=== PATIENT | female | born 1985 | race Caucasian/White ===

== ENCOUNTER 2017-01-27 22:58 | Outpatient (CLI) | payer MEDICAID ==
[~2017-01-27] VITALS: Ht 153.7 cm; Wt 74.8 kg
[2017-01-27 23:37] VITALS: BP 108/65; PULSE 102; RESP 18
[2017-01-27] MEDS ORDERED: FOLI0.8C PO (23:41)
[2017-01-27] MEDS ORDERED: PREN1COM PO (23:41)
[2017-01-27] MEDS ORDERED: FERR134T PO (23:41)
[2017-01-28] MEDS ORDERED: TERBUTALINE 1 MG/ML INJ SC ONE (00:30)
--- NOTE | 2017-01-28 01:51 | RADRPT ---
PROCEDURE: Biophysical profile. CLINICAL INDICATION: Pelvic pain. TECHNIQUE: Multiple sonographic images of the pelvis were obtained with transabdominal technique. COMPARISON: No prior studies are available for comparison. FINDINGS: There is a single living intrauterine gestation with the fetus in a vertex position. The placenta i s fundal in location, grade II. heart tones of 139 beats per minute are identified. There is normal amniotic fluid volume with an ADAM of 10.7 cm. breathing movements = 2 Gross body movements = 2 tone = 2 Qualitative AFV = 2 IMPRESSION: Biophysical profile 8 out of 8. .Mc Carroll MD, MD Date Time Electronically viewed and signed by .Mc Carroll MD, MD on 01/28/2017 01:51 .T/
--- NOTE | 2017-01-28 01:54 | RADRPT ---
PROCEDURE: Obstetrical ultrasound, limited. CLINICAL INDICATION: Pelvic pain. TECHNIQUE: Multiple sonographic images of the pelvis were obtained using transabdominal technique . Images were obtained with ni scale and color Doppler. The images were reviewed on a PACS works tation. COMPARISON: No prior studies are available for comparison. FINDINGS: There is a single living intrauterine gestation with the fetus in a vertex presentation. heart tones of 154 beats per minute are identified. The placenta is fundal in location, grade II. There i s no evidence of placenta previa or abruption. Measurements were made in order to determine age. The results are as follows: BPD =8.20 cm HC =29.61 cm AC =33.60 cm FL =6.73 cm. Estimated gestational age of approximately 34 weeks and 3 days. The estimated date of delivery is 03/08/2017. The EFW = 2753 +/- 413 grams. Estimated weight percentage equals 36.9%. IMPRESSION: Single viable intrauterine gestation of approximately 34 weeks and 3 days, with an ultrasound REDDY of 03/08/2017. .Mc Carroll MD, MD Date Time Electronically viewed and signed by .Mc Carroll MD, MD on 01/28/2017 01:53 .T/
--- NOTE | 2017-01-28 02:35 | TRIAGE ---
OB Triage Datetime Report Generated by CPN: 01/28/2017 02:34 Datetime: 01/28/2017 01:35 Stage of : OB Triage Monitor Mode: External Quality: Mild Pattern: Normal: <= 5 Contractions in 10 Minutes Resting Tone [employer]: Relaxed Heart Rate FHR Baseline Rate: 135 Monitor Mode: External US FHR Baseline Changes: No Baseline Change Variability: Moderate 6-25 bpm Accelerations: 15X15 Decelerations: None Category: Category I Pain Assessment Pain Scale: 5 Pain Presence: Intermittent Pain Type: Cramping Pain Location: Back Datetime: 01/28/2017 01:12 Monitor Mode: External Monitor Mode: External US Datetime: 01/28/2017 01:05 Monitor Mode: External Monitor Mode: External US Datetime: 01/28/2017 00:55 Stage of : OB Triage Datetime: 01/28/2017 00:40 Stage of : OB Triage Labor Evaluation Frequency: IRREGULAR Monitor Mode: External Duration (sec)2399: 30-40 Pattern: Normal: <= 5 Contractions in 10 Minutes Heart Rate FHR Baseline Rate: 135 Monitor Mode: External US Variability: Moderate 6-25 bpm Accelerations: 15X15 Decelerations: None Category: Category I Datetime: 01/28/2017 00:10 Stage of : OB Triage Datetime: 01/27/2017 23:52 Monitor Mode: External Quality: Mild Resting Tone [employer]: Relaxed Contraction Comments: difficult to monitor ucs Heart Rate FHR Baseline Rate: 135 Monitor Mode: External US FHR Baseline Changes: No Baseline Change Variability: Moderate 6-25 bpm Accelerations: 15X15 Decelerations: None Category: Category I Vaginal Exam Dilatation (cms): 0.0 Effacement (%): 0 Station: -4 Exam By: Yany Tao Membrane Status: Intact Vaginal Bleeding: None Cervix, Consistency: Moderate Cervix, Position: Posterior Presentation 'A': Unable to Assess Datetime: 01/27/2017 23:33 Time of Arrival: 01/27/2017 22:55 EGA: 36.1 Arrived By: Wheelchair Arrived From: Home Chief Complaint: w/ hx 3 previous c/s c/o ucs Movement: Absent Contractions: Regular Time Contractions Began: 01/27/2017 20:30 Contractions: q5 Rupture of Membranes: Denies Vaginal Bleeding: None Vaginal Discharge: Denies Recent Sexual Intercouse: Denies Abdominal Trauma: Not Applicable Patient Complaints: Contractions Time Provider Notified: 01/27/2017 23:30 Provider Notified: Dr Arreguin Initial Plan: EFM,SVE,terb,EFW,BPP Datetime: 01/27/2017 23:32 Stage of : OB Triage Datetime: 01/27/2017 23:29 Stage of : OB Triage Monitor Mode: External Quality: Mild Pattern: Normal: <= 5 Contractions in 10 Minutes Resting Tone [employer]: Relaxed Heart Rate FHR Baseline Rate: 135 Monitor Mode: External US Variability: Moderate 6-25 bpm Accelerations: 15X15 Pain Assessment Pain Scale: 7 Pain Presence: Intermittent Pain Type: Contraction Pain Location: Abdomen Datetime: 01/27/2017 23:07 Stage of : OB Triage Maternal Assessment Level of Consciousness: Fully Conscious Headache: Denies Blurred Vision: No Respiratory Effort: Unlabored Nausea/Vomiting: Denies RUQ Epigastric Pain: Denies Facial Edema: None Monitor Mode: External Resting Tone [employer]: Relaxed Heart Rate FHR Baseline Rate: 140 Monitor Mode: External US Pain Assessment Pain Scale: 7 Pain Presence: Intermittent Pain Type: Contraction Pain Location: Abdomen
--- NOTE | 2017-01-28 02:57 | PN ---
Triage Information Date/Time 01/28/1711/06/249 Reason for visit: Uterine contractions Weeks of Gestation IUP 36w 3d /Para Diabetes: none Hypertention: none Objective Vital Signs Date Time Temp Pulse Resp B/P Pulse Ox O2 Delivery O2 Flow Rate FiO2 01/27/17 23:37 98.1 102 18 108/65 Room Air Heart Rate: 130's Contractions: >10 Minutes Apart Exam closed/long /high Results/Medications Results 24 hrs Laboratory Tests Test 01/27/17 23:00 Urine Color STRAW Urine Clarity CLEAR Urine pH 7.0 Urine Specific [place] 1.003 Urine Ketones NEGATIVE Urine Nitrite NEGATIVE Urine Bilirubin NEGATIVE Urine Urobilinogen NEGATIVE Urine Leukocyte Esterase NEGATIVE Urine Hemoglobin NEGATIVE Urine Glucose NEGATIVE Urine Total Protein NEGATIVE Medications terbx1 Imaging Results BPP10/28 ADAM 10.7 EFW 2753+/- 413 Disposition: Discharge Assessment/Plan IUP 36w3d with previous c/sX3 R/O PTL resolved Plan d/s home with routine labor instructions RTH prANTONIO Larios MD Jan 28, 2017 02:57
== END 2017-01-28 02:32 | disposition home or self-care (01) ==
LOC: OBT 22:58 → L-D 23:00 → OBT 01-28 02:32
PROVIDERS: ATTEND Obstetrics & Gynecology
DX: O62.9 Abnormality of forces of labor, unspecified (principal); Z3A.36 36 weeks gestation of pregnancy
CPT/HCPCS: 36415; 76815; 76818; 81003; J3105; Z7500; G0463

== ENCOUNTER 2017-01-29 16:17 | Outpatient (CLI) | payer MEDICAID ==
[~2017-01-29] VITALS: Ht 162.6 cm; Wt 88.8 kg
[~2017-01-29 16:17] MED LIST: FERR134T PO; FOLI0.8C PO; PREN1COM PO
[2017-01-29 16:20] VITALS: Ht 162.6 cm; Wt 88.8 kg
--- NOTE | 2017-01-29 17:00 | RADRPT ---
PROCEDURE: Obstetrical ultrasound for biophysical profile CLINICAL INDICATION: Biophysical profile. . TECHNIQUE: Obstetrical ultrasound of the uterus for biophysical profile. Transabdominal views are obtained. COMPARISON: 01/28/2017 FINDINGS: Single intrauterine gestation. Presentation: Cephalic. Placenta: Fundal No evidence of placental abruption. No evidence of placenta previa. breathing movement = 2/2 tone = 2/2 motion = 2/2 ADAM = 2/2 ADAM = 13.8 cm heart rate: 127 beats per minute IMPRESSION: Single intrauterine gestation. Biophysical profile 10/28 RPTAT: AADD .Uri Meza MD, MD Date Time Electronically viewed and signed by .Uri Meza MD, on 01/29/2017 17:00 .B/
--- NOTE | 2017-01-29 17:00 | RADRPT ---
PROCEDURE: Obstetrical ultrasound for biophysical profile CLINICAL INDICATION: Biophysical profile. . TECHNIQUE: Obstetrical ultrasound of the uterus for biophysical profile. Transabdominal views are obtained. COMPARISON: 01/28/2017 FINDINGS: Single intrauterine gestation. Presentation: Cephalic. Placenta: Fundal No evidence of placental abruption. No evidence of placenta previa. breathing movement = 2/2 tone = 2/2 motion = 2/2 ADAM = 2/2 ADAM = 13.8 cm heart rate: 127 beats per minute IMPRESSION: Single intrauterine gestation. Biophysical profile 10/28 RPTAT: AADD .Uri Meza MD, MD Date Time Electronically viewed and signed by .Uir Meza MD, on 01/29/2017 17:00 .B/
--- NOTE | 2017-01-29 18:13 | CONS ---
Date/Time of Note Date/Time of Note DATE: 01/29/17 TIME: 18:07 Consultation Date/Type/Reason Admit Date/Time . January 29, 2017 OB triage consult. This patient is a 31 years old 4 para 3 who had all her previous 3 deliveries by section. Her estimated date of confinement is 03/01/2017 which makes her 36 weeks and 3 days now. She is complaining of decreased movement for the past few hours. In reviewing her record her blood type is O+ hepatitis B surface antigen and HIV RPR GBS Chlamydia gonorrhea were all quite are negative for nonreactive rubella she is immune. Currently she is taking her iron and vitamins. On examination; she is a well-developed well-nourished woman. Her general vital signs are basically normal with blood pressure 107/57 pulse rate of, 80, respiration 18 and temperature of 99.1,. Constitutional: chills, diaphoresis, disoriented, febrile, improved, no complaints, other, poor po, requiring IVF, requiring O2 Eyes: No discharge, No no complaints, No other, No pain, No redness, No visual change ENT: No bleeding, No congestion, No discharge, No dysphagia, No no complaints, No other, No pain, No sore throat Respiratory: No cough, No no complaints, No other, No pain, No pleuritic pain, No shortness of breath, No sputum, No wheezing Cardiovascular: No chest pain, No edema, No lightheadedness, No no complaints, No orthopenea, No other, No palpitations, No paroxysmal nocturnal dyspnea Gastrointestinal: No blood, No constipation, No decreased appetite, No diarrhea , No flatus, No nausea, No no complaints, No other, No pain, No passing stool, No vomiting Genitourinary: No bleeding, No discharge, No dysuria, No flank pain, No hematuria, No no complaints, No other Musculoskeletal: No back pain, No bone/joint pain, No neck pain, No no complaints, No other, No restricted range of motion, No swelling Skin: No bruising, No erythema, No laceration, No no complaints, No other, No pruritis, No rash, No skin lesions Neurologic: No confusion, No dizziness, No focal-weakness, No headache, No no complaints, No other, No seizure, No syncope Endocrine: No dry skin, No no complaints, No other, No polydypsia, No polyuria , No temp intolerance Additional Comments . On ultrasound study; report is a single intrauterine gestation with fetus in vertex presentation, placenta was fundal no evidence of abruption or previa, her biophysical profile was reported 10/28 amniotic fluid index was 13.8 cm Disposition; with these normal findings patient was reassured and discharged home with instruction to rest and do the kick count to return to the hospital if any evidence of labor, low movement, vaginal bleeding, or any other complication of Social History Smoking Status: Never smoker ANNY BERNARDO MD Jan 29, 2017 18:13
--- NOTE | 2017-01-29 18:29 | TRIAGE ---
OB Triage Datetime Report Generated by CPN: 01/29/2017 18:29 Datetime: 01/29/2017 18:00 Monitor Mode: External Quality: Mild Pattern: Normal: <= 5 Contractions in 10 Minutes Resting Tone [place]: Relaxed Contraction Comments: Mild uterine irritability noted FHR Baseline Rate: 135 Monitor Mode: External US FHR Baseline Changes: No Baseline Change Variability: Moderate 6-25 bpm Accelerations: 15X15 Decelerations: None Category: Category I Pain Presence: None/Denies Datetime: 01/29/2017 17:00 Frequency: OCC Monitor Mode: External Quality: Mild Pattern: Normal: <= 5 Contractions in 10 Minutes Resting Tone [place]: Relaxed FHR Baseline Rate: 135 Monitor Mode: External US FHR Baseline Changes: No Baseline Change Variability: Moderate 6-25 bpm Accelerations: 15X15 Decelerations: None Category: Category I Pain Presence: None/Denies Pain Assessment Comments: Pt denies feeling any pain or pressure with uterine irritability Datetime: 01/29/2017 16:40 Time of Arrival: 01/29/2017 16:04 EGA: 36.3 Arrived By: Ambulatory Arrived From: Dr. Stauffer Chief Complaint: Decreased movement Movement: Decreased Contractions: Denies/Absent Rupture of Membranes: Denies Vaginal Discharge: Denies Recent Sexual Intercouse: Denies Abdominal Trauma: Not Applicable Patient Complaints: Other Time Provider Notified: 01/29/2017 17:10 Provider Notified: David Initial Plan: NST, BPP/ADAM Datetime: 01/29/2017 16:15 Assessment Type: Triage Level of Consciousness: Fully Conscious DTR's/Clonus: DTRs 2+; No Clonus Headache: Denies Blurred Vision: No Respiratory Effort: Unlabored; Regular Rhythm; Equal Expansion Breath Sounds, Left: Clear and Equal Breath Sounds, Right: Clear and Equal Nausea/Vomiting: Denies RUQ Epigastric Pain: Denies Lower Extremities Edema: Bilateral Lower Extremities Degree: Trace Upper Extremities Edema: Bilateral Upper Extremities Degree: Trace Facial Edema: None History of Falling: (0) No Secondary Diagnosis: (0) No Ambulatory Aid: (0) Bedrest/Nurse Assist IV Therapy: (0) No Gait: (0) Normal/Bedrest/Immobile Mental Status: (0) Oriented to Own Ability Fall Score: 0 Fall Risk Score Definition: No Risk: No action required Datetime: 01/29/2017 16:09 Stage of : OB Triage Datetime: 01/28/2017 02:24 Stage of : OB Triage Monitor Mode: External Quality: Mild Pattern: Normal: <= 5 Contractions in 10 Minutes Resting Tone [place]: Relaxed FHR Baseline Rate: 135 Monitor Mode: External US FHR Baseline Changes: No Baseline Change Variability: Moderate 6-25 bpm Accelerations: 15X15 Decelerations: None Category: Category I Pain Scale: 3 Pain Presence: Intermittent Pain Type: Dull Pain Location: Back
== END 2017-01-29 18:10 | disposition home or self-care (01) ==
LOC: OBT 16:17 → L-D 16:18 → OBT 18:10
PROVIDERS: ATTEND Obstetrics & Gynecology
DX: O36.8130 Decreased fetal movements, third trimester, not applicable or unspecified (principal); O34.219 Maternal care for unspecified type scar from previous cesarean delivery; Z3A.36 36 weeks gestation of pregnancy
CPT/HCPCS: 76818; Z7500; G0463

== ENCOUNTER 2017-02-23 09:52 | Inpatient (IN) | payer MEDICAID ==
[~2017-02-23] VITALS: Ht 152.4 cm; Wt 74.7 kg
[2017-02-23 10:04] VITALS: BP 100/68; PULSE 80; RESP 19
[2017-02-23] MEDS: LACTATED RINGER'S 1,000 ML IV SCH ×4 (10:23→17:12)
[2017-02-23] MEDS ORDERED: METHYLERGONOVINE 0.2 MG INJ IM PRN ×2 (10:30→20:30)
[2017-02-23] MEDS ORDERED: OXYTOCIN 30 UNITS/LR 500 ML IV SCH (10:30)
[2017-02-23] MEDS ORDERED: CARBOPROST 250 MCG INJ IM PRN ×2 (10:30→20:30)
[2017-02-23] MEDS ORDERED: CEFAZOLIN 2 GM/50 ML (PMX) 50 ML IVPB ONE (10:30)
[2017-02-23] MEDS ORDERED: OXYTOCIN 30 UNITS/LR 500 ML IV PRN ×2 (10:30→20:30)
[2017-02-23] MEDS ORDERED: MISOPROSTOL 200 MCG TAB PR PRN ×2 (10:30→20:30)
[2017-02-23 10:46] LABS: BASOPHILS % 0.5 % (0.0-2.0); EOSINOPHILS # 0.2 10^3/ul (0.0-0.5); HEMATOCRIT 38.5 % (37.0-47.0); HEMOGLOBIN 13.4 g/dl (12.0-16.0); LYMPHOCYTES # 1.6 10^3/ul (0.8-2.9); LYMPHOCYTES % 19.2 % (15.0-51.0); MEAN CORPUSCULAR HEMOGLOBIN 31.7 pg (29.0-33.0); MEAN CORPUSCULAR HGB CONC 34.8 g/dl (32.0-37.0); MEAN PLATELET VOLUME 10.2 fl (7.4-10.4); MONOCYTE # 0.7 10^3/ul (0.3-0.9); MONOCYTES % 7.6 % (0.0-11.0); NEUTROPHIL # 5.9 10^3/ul (1.6-7.5); NEUTROPHILS % 69.8 % (39.0-77.0); PLATELET COUNT 278 10^3/UL (140-415); RED BLOOD COUNT 4.23 10^6/ul (4.20-5.40); RED CELL DISTRIBUTION WIDTH 13.9 % (11.5-14.5); WHITE BLOOD COUNT 8.5 10^3/ul (4.8-10.8)
[2017-02-23 11:05] LABS: INR 0.93; PROTIME 12.6 Sec (11.9-14.9)
[2017-02-23 11:06] LABS: PARTIAL THROMBOPLASTIN TIME 28.2 Sec (25.0-35.0)
[2017-02-23 11:31] LABS: BARBITURATES Negative (NEGATIVE); BENZODIAZEPINES Negative (NEGATIVE); CANNABINOIDS Negative (NEGATIVE); COCAINE Negative (NEGATIVE); OPIATES Negative (NEGATIVE)
[2017-02-23] MEDS ORDERED: ONDANSETRON 4 MG INJ IV STA (13:15)
[2017-02-23] MEDS ORDERED: CITRIC ACID/SODIUM CITRATE 15 ML CUP PO ONE (13:30)
[2017-02-23] MEDS ORDERED: morphine SULFATE/PF (10 MG/10 ML) INJ ONE (15:36)
[2017-02-23] MEDS ORDERED: METOCLOPRAMIDE 10 MG INJ ONE (15:36)
[2017-02-23] MEDS ORDERED: OXYTOCIN 10 UNIT INJ ONE (15:36)
[2017-02-23] MEDS ORDERED: PHENYLephrine (100 MCG/ML) 5ML SYG ONE ×4 (15:36→17:10)
[2017-02-23] MEDS ORDERED: KETOROLAC 30 MG INJ ONE (15:37)
[2017-02-23] MEDS ORDERED: DEXAMETHASONE 4 MG/ML 1 ML INJ ONE (15:37)
[2017-02-23] MEDS ORDERED: HYDROmorphONE 0.5 MG/0.5 ML SYG IV PRN ×2 (17:00)
[2017-02-23] MEDS ORDERED: morphine 2 MG INJ IV PRN (17:00)
[2017-02-23] MEDS ORDERED: ONDANSETRON 4 MG INJ IV PRN (17:00)
[2017-02-23] MEDS ORDERED: DIPHENHYDRAMINE 50 MG INJ IV PRN (17:00)
[2017-02-23] MEDS ORDERED: NALOXONE (0.4 MG/ML) INJ IV PRN (17:00)
[2017-02-23] MEDS ORDERED: ACETAMINOPHEN 500 MG TAB PO PRN (17:00)
[2017-02-23] MEDS ORDERED: HYDROCODONE/APAP (5/325) TAB PO PRN ×3 (17:00→20:30)
[2017-02-23] MEDS ORDERED: NALBUPHINE HCL (10 MG/1 ML) INJ IV PRN (17:00)
[2017-02-23] MEDS ORDERED: morphine 4 MG/ML VIAL IV PRN (17:00)
[2017-02-23] MEDS ORDERED: KETOROLAC 30 MG INJ IV PRN (17:00)
--- NOTE | 2017-02-23 17:21 | OPR ---
Operative Report Planned Procedure Free Text/Dictation 31 years old female EDC March 01, 2017 history of 3 previous section admitted at 39 weeks and 1 day for repeat for the fourth time Procedure date Feb 23, 2017 Procedure(s) Repeat Performed by see signature line Normalizer TOVA NORRIS Anesthesiologist: DENNIS DE LA ROSA MD Pre-procedure diagnosis 39 weeks 1 day history of 3 previous admitted to the hospital for repeat for the fourth time Anesthesia Type: spinal Post-Procedure Post-procedure diagnosis Same as above Findings Viable live baby 9 and 9 Estimated Blood Loss: 500 - 600 mls Specimen(s) none Grafts/Implant(s) none Complication(s) none Pt Condition post procedure: stable Procedure Description Under satisfactory spinal anesthesia patient prepped and draped and placed in supine position. Pfannenstiel incision was made. Old scar was removed, incision carried through the subcutaneous tissue. Fascia incised to the length of incision. Rectus muscle divided in midline. entry to the abdominal cavity was difficult due to excessive adhesions between the anterior uterine wall and anterior abdominal wall which taken down by sharp and blunt dissection. And uterus relieved from adhesions ,exploration of abdomen revealed [gravid uterus at term normal-appearing tubes and ovaries.] Bladder flap was developed. Transverse incision was made in the lower segment of the uterus. Amniotic sac ruptured, [clear amniotic fluid noted.] Live baby girl was delivered from unengaged vertex.Naso oropharyngeal suction was performed. Baby handed to the team for immediate attention. Patient received 20 units of Pitocin. Placenta delivered manually intact. Uterine cavity cleaned with a wet sponge and drainage established. Uterus closed in 2 layers using Monocryl #1 in continuous fashion. Peritoneal cavity irrigated with warm saline. Sponge needle instrument reported to be correct. Abdominal peritoneum closed with 2-0 chromic catgut continuously. Fascia closed with #1 PDS in a continuous fashion. Subcutaneous tissue irrigated with warm saline and approximated with 2-0 chromic catgut skin closed with N sorb estimated blood loss [600 cc]. Urine bag containing [200] mL of [clear] urine. Patient tolerated procedure well and transferred to recovery room in good condition. MARITZA BRISCOE MD Feb 23, 2017 17:20
--- NOTE | 2017-02-23 17:27 | HP ---
Date/Time of Note Date/Time of Note DATE: 02/23/17 TIME: 17:23 OB - History Hx of Present Free Text/Dictation 31 years old female EDC March 01, 2017 admitted at 39 weeks and 1 day to [facility] with a history of 3 previous section to undergo repeat for the fourth time Chief Complaint: 39 weeks and 1 day history of 3 previous section Estimated Due Date: Mar 01, 2017 : 4 Para: 3 Care: Limited Care Ultrasounds: Normal mid trimester US Obstetrical Complications: None Medical Complications: None Past Family/Social History * Past Medical, Surgical, Family and Obstetric Histories reviewed from chart. Rubella: immune RPR/VDRL: Negative GBS Status: Negative OB Admission Exam Vital Signs Vital Signs Vital Signs Date Time Temp Pulse Resp B/P Pulse Ox O2 Delivery O2 Flow Rate FiO2 02/23/17 10:04 98.4 80 19 100/68 Room Air Physical Exam HEENT: WNL Heart: Rhythm Normal Lungs: Clear, Equal Abdomen: WNL Extremities: Normal Reflexes: Normal Cervical Dilatation: None Membranes: Intact Heart Rate: 130's Accelerations: Accelerations Present Decelerations: No Decelerations Intensity: Mild Last 72 hours Lab Results CBC & BMP 02/23/17 10:20 OB Assessment/Plan Reason for admission: section Other plan: This is a 31 years old female 4 para 3 admitted to [facility] at 39 weeks and 1 day with a history of 3 previous section being prepared to undergo repeat for the fourth time this patient has been under the care of the [facility] and her was not complicated with gestational diabetes -induced hypertension or any other serious medical or surgical condition, complication of the surgery especially with the history of 3 previous section including but not limited to bowel and bladder injury infection hemorrhage and wound hematoma explained to the patient and she is willing to go ahead with the procedure MARITZA BRISCOE MD Feb 23, 2017 17:27
[2017-02-23] MEDS: OXYTOCIN 30 UNITS/LR 500 ML IV SCH (20:29)
[2017-02-23] MEDS ORDERED: LANOLIN 7 GM TUBE TOP PRN (20:30)
[2017-02-23] MEDS ORDERED: CEFAZOLIN 1 GM/50 ML (PMX) 50 ML IVPB SCH (20:30)
[2017-02-23] MEDS ORDERED: OXYCODONE/ACETAMINOPHEN (5/325) TAB PO PRN ×2 (20:30)
[2017-02-23 20:40] VITALS: BP 96/56; PULSE 76; RESP 18
[2017-02-23] MEDS: SENNA/DOCUSATE NA (8.6MG/50MG) TAB PO SCH (21:00)
[2017-02-23 23:40] VITALS: BP 99/61; PULSE 78; RESP 18
[2017-02-24] MEDS: OXYTOCIN 30 UNITS/LR 500 ML IV SCH ×6 (01:19→20:29)
[2017-02-24 04:00] VITALS: BP 96/55; PULSE 78; RESP 18
[2017-02-24] MEDS: LACTATED RINGER'S 1,000 ML IV SCH ×3 (04:36→13:20)
[2017-02-24 08:15] VITALS: BP 91/51; PULSE 85; RESP 18
[2017-02-24] MEDS: SENNA/DOCUSATE NA (8.6MG/50MG) TAB PO SCH ×2 (08:33→20:35)
[2017-02-24] MEDS ORDERED: INFLUENZA VIRUS VACCINE 0.5 ML (DISPENSING) IM* ONE (09:00)
--- NOTE | 2017-02-24 09:04 | OPPN ---
Date/Time of Note Date/Time of Note DATE: 02/24/17 TIME: 09:04 Post-Anesthesia Notes Post-Anesthesia Note Last documented vital signs Vital Signs Date Time Temp Pulse Resp B/P Pulse Ox O2 Delivery O2 Flow Rate FiO2 02/24/17 08:15 99.0 85 18 91/51 Room Air 02/24/17 03:21 96 21 Activity: WNL Respiratory function: WNL Cardiovascular function: WNL Mental status: Baseline Pain reasonably controlled: Yes Hydration appropriate: Yes Nausea/Vomiting absent: Yes DENNIS DE LA ROSA MD Feb 24, 2017 09:04
[2017-02-24 09:55] LABS: BASOPHILS % 0.3 % (0.0-2.0); EOSINOPHILS % 0.2 % (0.0-7.0); HEMATOCRIT 34.2 % (37.0-47.0); HEMOGLOBIN 11.9 g/dl (12.0-16.0); LYMPHOCYTES # 2.3 10^3/ul (0.8-2.9); LYMPHOCYTES % 16.7 % (15.0-51.0); MEAN CORPUSCULAR HEMOGLOBIN 31.6 pg (29.0-33.0); MEAN CORPUSCULAR HGB CONC 34.8 g/dl (32.0-37.0); MEAN PLATELET VOLUME 10.1 fl (7.4-10.4); MONOCYTE # 1.2 10^3/ul (0.3-0.9); MONOCYTES % 8.6 % (0.0-11.0); NEUTROPHIL # 10.3 10^3/ul (1.6-7.5); NEUTROPHILS % 73.5 % (39.0-77.0); PLATELET COUNT 249 10^3/UL (140-415); RED BLOOD COUNT 3.76 10^6/ul (4.20-5.40); RED CELL DISTRIBUTION WIDTH 13.5 % (11.5-14.5)
[2017-02-24 10:54] VITALS: BP 96/51; PULSE 89; RESP 18
--- NOTE | 2017-02-24 12:18 | QN ---
Documentation Comment Post day 1 Afebrile Vital signs are stable Abdomen soft, incision dry bowel sounds present lochia moderate, extremities normal, ambulation encouraged MARITZA BRISCOE MD Feb 24, 2017 12:18
[2017-02-24 15:36] VITALS: BP 87/52; PULSE 94; RESP 18
[2017-02-24] MEDS: IBUPROFEN 600 MG TAB PO SCH ×2 (18:24→23:59)
[2017-02-24 20:00] VITALS: BP 100/51; PULSE 96; RESP 18
[2017-02-25 04:05] VITALS: BP 95/64; PULSE 75; RESP 18
[2017-02-25] MEDS: IBUPROFEN 600 MG TAB PO SCH ×4 (06:03→23:59)
[2017-02-25 09:00] VITALS: BP 89/59; PULSE 78; RESP 18
[2017-02-25] MEDS: SENNA/DOCUSATE NA (8.6MG/50MG) TAB PO SCH ×2 (09:08→22:20)
--- NOTE | 2017-02-25 10:37 | PN ---
Date/Time of Note Date/Time of Note DATE: 02/25/17 TIME: 10:35 OB Subjective Subjective Subjective Pacifiers. Breast-feeding. Ambulating. Reports decreasing vaginal bleeding. Denies any complaint. Sternal 4, postop day #2 OB Objective Objective Objective Mood: Normal. No evidence of depression Abdomen: Soft, fundus firm and nontender. Appropriate tenderness in the C- section incision. No evidence of abnormal drainage discharge or erythema Extremities: No calf tenderness, no click no edema no cords palpable Lungs: Clear to auscultation bilaterally CV: RRR Hematology - 72 Hrs Test 02/23/17 10:20 02/24/17 09:32 White Blood Count 8.510^3/ul (4.8-10.8) 14.010^3/ul (4.8-10.8) #H Red Blood Count 4.2310^6/ul (4.20-5.40) 3.7610^6/ul (4.20-5.40) L Hemoglobin 13.4g/dl (12.0-16.0) 11.9g/dl (12.0-16.0) L Hematocrit 38.5% (37.0-47.0) 34.2% (37.0-47.0) L Mean Corpuscular Volume 91.0fl (82.0-101.0) 91.0fl (82.0-101.0) Mean Corpuscular Hemoglobin 31.7pg (29.0-33.0) 31.6pg (29.0-33.0) Mean Corpuscular Hemoglobin Concent 34.8g/dl (32.0-37.0) 34.8g/dl (32.0-37.0) Red Cell Distribution Width 13.9% (11.5-14.5) 13.5% (11.5-14.5) Platelet Count 92371^3/UL (140-415) 44975^3/UL (140-415) Mean Platelet Volume 10.2fl (7.4-10.4) 10.1fl (7.4-10.4) Neutrophils % 69.8% (39.0-77.0) 73.5% (39.0-77.0) Lymphocytes % 19.2% (15.0-51.0) 16.7% (15.0-51.0) Monocytes % 7.6% (0.0-11.0) 8.6% (0.0-11.0) Eosinophils % 2.0% (0.0-7.0) 0.2% (0.0-7.0) Basophils % 0.5% (0.0-2.0) 0.3% (0.0-2.0) Nucleated Red Blood Cells % 0.0/100WBC (0.0-0.0) 0.0/100WBC (0.0-0.0) Neutrophils # 5.910^3/ul (1.6-7.5) 10.310^3/ul (1.6-7.5) H Lymphocytes # 1.610^3/ul (0.8-2.9) 2.310^3/ul (0.8-2.9) Monocytes # 0.710^3/ul (0.3-0.9) 1.210^3/ul (0.3-0.9) H Eosinophils # 0.210^3/ul (0.0-0.5) 0.010^3/ul (0.0-0.5) Basophils # 0.010^3/ul (0.0-0.1) 0.010^3/ul (0.0-0.1) Nucleated Red Blood Cells # 0.010^3/ul (0.0-0.0) 0.010^3/ul (0.0-0.0) OB Assessment/Plan Other Assessment: Status post repeat at 39 weeks and 1 day Non-complicated Mild anemia, postop Doing well PPD positive, chest x-ray negative. Evaluated during her course Routine postop care Anticipate DC home tomorrow TORREY LAZARO MD Feb 25, 2017 10:37
[2017-02-25 16:00] VITALS: BP 89/60; PULSE 84; RESP 20
[2017-02-25 20:00] VITALS: BP 95/69; PULSE 78; RESP 18
[2017-02-26 04:25] VITALS: BP 124/88; PULSE 74; RESP 18
[2017-02-26] MEDS: IBUPROFEN 600 MG TAB PO SCH ×2 (05:31→11:51)
[2017-02-26 07:45] VITALS: BP 97/71; PULSE 69; RESP 16
[2017-02-26] MEDS: SENNA/DOCUSATE NA (8.6MG/50MG) TAB PO SCH (08:59)
[2017-02-26] MEDS ORDERED: DIPHTH/TET/ACEL PERTUSS (ADULT) 0.5 ML VIAL IM* ONE (09:00)
--- NOTE | 2017-02-26 09:32 | PD.PPDC ---
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
--- NOTE | 2017-02-26 09:38 | DS ---
Date/Time of Note Date/Time of Note DATE: 02/26/17 TIME: 09:34 Discharge Summary Admission/Discharge Info Admit Date/Time Feb 23, 2017 at 09:52 Discharge Date/Time February 27, 2000 2017 at 1030 Discharge Diagnosis Post repeat day 3 Patient Condition: Good Procedures Repeat Hx of Present Illness Term history of previous section Hospital Course Satisfactory uneventful Home Meds Reported Medications Folic Acid (Folic Acid) 0.8 Mg Capsule, 0.8 MG PO DAILY, CAP 01/27/17 Ferrous Sulfate (Iron) 134 Mg Tablet, 134 MG PO DAILY, TAB 01/27/17 Prenat Vit Comb.10/Iron/FA/Dha (Vitafol-Ob+Dha Combo Pack) 1 Each Combo..pkg, 1 EACH PO 01/27/17 Follow-up Plan Post instructions given recommended to make appointment to be seen at the clinic in 1 week Primary Care Provider Care Physician No Primary Time spent on discharge: < 30 minutes MARITZA BRISCOE MD Feb 26, 2017 09:38
== END 2017-02-26 13:35 | disposition home or self-care (01) | DRG 766 ==
LOC: L-D 09:52 → PP1 21:01
PROVIDERS: ADMIT Obstetrics & Gynecology; ATTEND Obstetrics & Gynecology
PROC: 10D00Z1 Extraction of Products of Conception, Low, Open Approach (ICD-10-PCS; principal; 2017-02-23 17:30)
DX: O34.219 Maternal care for unspecified type scar from previous cesarean delivery (principal); Z37.0 Single live birth; Z3A.39 39 weeks gestation of pregnancy
CPT/HCPCS: 80307; 85025; 85610; 85730; 86592; 86850; 86900; 86901; 86920; 87340; 90686; 90715; 94760; 99464; J0690; J1100; J1885; J2274; J2370; J2405; J2590; J2765; J7120